=== PATIENT | female | born 1930 | race Caucasian/White ===

== ENCOUNTER 2019-04-14 14:31 | Inpatient (IN) | payer OTHER ==
[2019-04-14] VITALS (15 sets, daily range): BP systolic 137–167; BP diastolic 60–80
[~2019-04-14] VITALS: Ht 152.4 cm; Wt 68.7 kg
--- NOTE | ~2019-04-14 | CON ---
[address] [address] CONSULTATION Name: DERRELL GREEN ABRAM Room: [address] IN M.R.#: [id number] Admission: 04/14/19 Attend Phys: Bobby Martinez MD Discharge: Date of : [birth year] Report #: [id number] THIS REPORT FOR: //name// cc: Delmy Frazier MD, Katrina MD ~ THIS REPORT FOR: //name// CC: Bobby Frazier DATE OF SERVICE: 04/14/2019 CARDIOLOGY CONSULTATION HISTORY OF PRESENT ILLNESS: The patient is a pleasant 89-year-old female who presented to the ER with severe chest discomfort and nausea. This came on in early a.m. and has persisted at the present time. Initial EKG suggested acute inferoposterolateral injury and we were asked to see the patient. On questioning, she notes persistent chest discomfort despite aspirin and nitrates in the ER. She denies pain of this kind in the past and there is no history of antecedent myocardial infarction. She denies a history of hypertension, diabetes, hypercholesterolemia, or family history of premature coronary artery disease. She has never been a smoker. PAST MEDICAL HISTORY: Reveals a question history of hypertension. ALLERGIES: She denies any allergies. PHYSICAL EXAMINATION: GENERAL: Reveals an alert, elderly female, in acute distress. VITAL SIGNS: Blood pressure is 160/70, pulse rate is 66, and respirations are 18 per minute. NECK: Jugular venous pressure is normal. CHEST: Clear. CARDIAC: Reveals normal first and second heart sounds without murmurs or gallops. ABDOMEN: Moderately obese. EXTREMITIES: Well perfused without edema, clubbing or cyanosis with intact femoral, pedal and radial pulses. IMAGING DATA: EKG reveals sinus rhythm with high lateral ST segment depression, inferior right precordial and anterolateral ST segment depression suggesting [place] [address] CONSULTATION Name: DERRELL GREEN ABRAM Room: [address] IN [facility]#: [id number] Admission: 04/14/19 Attend Phys: Bobby Martinez MD Discharge: Date of : [birth year] Report #: [id number] IMPRESSION: 1. Acute myocardial infarction (suggested inferoposterolateral location). 2. Chest pain in the context of #1. 3. Underlying coronary artery disease. 4. Question history of antecedent hypertension. RECOMMENDATIONS: 1. Given the aforementioned clinical scenario, I concur with the administration of aspirin, heparin, and nitrates. 2. I would plan emergent catheterization with consideration of acute coronary intervention contingent on the results of the study. This has been discussed with the patient and family. Critical care time is 30 minutes from 1435 to 1505 on 04/14/2019. By: 1501 1957Hossein Resendiz MD, FACC /nt
[~2019-04-14 14:31] MED LIST: AMOXICILLIN875 MG PO
--- NOTE | 2019-04-14 14:34 | NUR ---
SEE STEMI FLOW SHEET
[2019-04-14] MEDS ORDERED: SYNTHROID75 MCG PO (14:50)
[2019-04-14] MEDS ORDERED: FISH OIL 1,0001 EAC9 PO (14:51)
[2019-04-14] MEDS ORDERED: NEXIUM20 MG PO (14:51)
[2019-04-14 14:56] LABS: HEMATOCRIT 41.2 % (37.0-47.0); HEMOGLOBIN 14.1 gm/dL (12.0-15.0); MCH 32.1 pg (26.0-34.0); MCHC 34.2 g/dL (28.0-37.0); MPV 10.6 fl. (7.2-11.1); NUCLEATED RBCS 0 /100WBC; PLATELET COUNT* 216 thou/uL (150-400); RBC 4.38 mil/uL (4.20-5.00); WBC 8.5 thou/uL (4.0-11.0)
--- NOTE | 2019-04-14 15:00 | NUR ---
2 GOLD IN COLOR NECLACES GIVEN NEELAM PT DAUGHTER
[2019-04-14 15:08] LABS: APTT 27.4 Seconds (25.0-31.3); INR 1.1; PROTIME 10.9 Seconds (9.20-11.50)
--- NOTE | 2019-04-14 15:11 | NUR ---
CHIEF STATION ENGINEER AT BEDSIDE
[2019-04-14 15:19] LABS: ALBUMIN 3.9 g/dL (3.4-5.0); CALCIUM 9.2 mg/dL (8.5-10.1); CK-MB MASS 65.3 ng/mL (<0.5-3.6); CREATININE 0.9 mg/dL (0.6-1.3); MAGNESIUM 1.9 mg/dL (1.8-2.4); POTASSIUM 3.8 mmol/L (3.5-5.1); TOTAL BILIRUBIN 0.5 mg/dL (<0.1-1.0); TOTAL PROTEIN 8.1 g/dL (6.4-8.2)
[2019-04-14 15:21] LABS: ABSOLUTE LYMPHOCYTES 0.4 thou/uL (0.8-5.3); ABSOLUTE MONOCYTES 0.1 thou/uL (0.0-1.2); ATYPICAL LYMPHS 1 %; PLATELET ESTIMATE ADEQUATE
--- NOTE | 2019-04-14 17:44 | EKG ---
[place] [address] ELECTROCARDIOGRAM REPORT Name: DERRELL GREEN Room: [place] [address] ADM IN .R.#: [id number] Admission: 04/14/19 Attend Phys: Bobby Martinez, Discharge: Date of : [birth year] Date of Service: 04/14/19 1434 Report #: [id number] THIS REPORT FOR: //name// [facility] ED Test Date: 2019-04-14 Test Time: 14:34:45 Pat Name: DERRELL GREEN Department: Room: [facility] Gender: F It Portfolio Manager: : 1930 Requested By: Obdulio Nevarez Order Number: [id number] MD: Silverio Neves Measurements Intervals [place] Rate: 65 P: 63 MI: 153 QRS: 20 QRSD: 93 T: -28 QT: 406 QTc: 423 Interpretive Statements Sinus rhythm Atrial premature complexes Repol abnrm suggests ischemia, diffuse leads ST elevation, consider lateral injury Baseline wander in lead(s) II Compared to ECG 08/05/2008 20:44:02 Atrial premature complex(es) now present Early repolarization now present Possible ischemia now present ST (T wave) deviation now present Myocardial infarct finding now present T-wave abnormality no longer present Electronically Signed On 04-14-2019 17:43:13 CRISIS INTERVENTION COUNSELOR by Silverio Neves [email or web address] <ELECTRONICALLY SIGNED> By: Silverio Neves MD, [facility] 04/14/19 1743 1434 1434 Silverio Neves MD, [facility] /EPI
[2019-04-15] VITALS (36 sets, daily range): BP systolic 99–151; BP diastolic 32–66
[2019-04-15 06:09] LABS: HEMATOCRIT 39.4 % (37.0-47.0); HEMOGLOBIN 13.3 gm/dL (12.0-15.0); MCH 31.7 pg (26.0-34.0); MCHC 33.7 g/dL (28.0-37.0); MCV 93.9 fL (80.0-100.0); MPV 10.9 fl. (7.2-11.1); RBC 4.2 mil/uL (4.20-5.00); WBC 13.2 thou/uL (4.0-11.0)
[2019-04-15 06:26] LABS: ALBUMIN 3.1 g/dL (3.4-5.0); ALKALINE PHOSPHATASE 69 U/L (46-116); ANION GAP 13 mmol/L (7-16); BUN 18 mg/dL (7-18); CALCIUM 8.3 mg/dL (8.5-10.1); CHLORIDE 104 mmol/L (98-107); CHOLESTEROL 212 mg/dL (<200); CO2 21 mmol/L (21-32); CREATININE 0.7 mg/dL (0.6-1.3); GLUCOSE 153 mg/dL (70-99); HDL CHOLESTEROL 71 mg/dL (>40); LDL CHOLESTEROL 125 mg/dL (<100); POTASSIUM 3.7 mmol/L (3.5-5.1); SGOT 163 U/L (15-37); SGPT 31 U/L (30-65); SODIUM 138 mmol/L (136-145); TOTAL BILIRUBIN 0.9 mg/dL (<0.1-1.0); TOTAL PROTEIN 6.9 g/dL (6.4-8.2); TRIGLYCERIDE 83 mg/dL (<150); VLDL 17 mg/dL (<40)
[2019-04-15 06:31] LABS: SERUM ASSESSMENT Clear; TROPONIN-I LEVEL 23.95 ng/mL (<0.06)
--- NOTE | 2019-04-15 10:17 | CARD ---
[address] [address] CARDIAC CATH REPORT Name: PETERDERRELLADDIE VALVERDE Room: [address] ADM IN M.R.#: [id number] Admission: 04/14/19 Attend Phys: Bobby Martinez MD Discharge: Date of : [birth year] Report #: [id number] THIS REPORT FOR: //name// cc: Delmy Frazier MD, Katrina MD ~ THIS REPORT FOR: //name// APPROVED REPORT Study performed: 04/14/2019 14:57:33 Patient Details Patient Status: ED Room #: The patient is a 89 year-old female Event Personnel Hossein Resendiz Slide Machine Tender, Ju Bardales RN RN, Waylon Sosa RTR Scrub, Eva Owusu RTR Monitor Procedures Performed Art Access - R femoral artery Coronary Angiography Only BASSAM Revasc AMI Total/Sub Single RCA BASSAM Revasc AMI Total/Sub Single LAD Hemostasis w/ Angioseal Indication Non-STEMI Risk Factors Hypercholesterolemia, Hypertension Admission/Lab Medications/Medications given during procedure Angiomax bolus and infusion Procedure Narrative The patient was brought emergently to the Cardiac Catheterization Laboratory and was prepped and draped in a sterile manner. The right femoral was infiltrated with 2% Lidocaine subcutaneous anesthesia. A [place] 6 FR sheath was inserted into the right femoral artery. Coronary angiography was performed using coronary diagnostic catheters. The right coronary system was accessed and visualized with a Diagnostic 3 DRC 6 Fr catheter. The left coronary system was accessed and visualized with a Guide XBLAD 3.5 catheter. Pre-demployment femoral angiogram was performed . Closure device was deployed with a Fr Angioseal STS 6Fr. The patient tolerated the procedure well and there [place] [address] CARDIAC CATH REPORT Name: DERRELL GREEN Room: [address] IN [facility]#: [id number] Admission: 04/14/19 Attend Phys: Bobby Martinez MD Discharge: Date of : [birth year] Report #: [id number] procedure. There was no hematoma. Intraoperative Conscious Sedation No sedation was given. Case start time was 15:20 and case end time was 17:06 Fluoro Time: 44.8 minutes Dose: DAP 040604 cGycm2 3097 mGy Contrast Type and Amount: Visipaque 300 ml Diagnostic Cath Left Main 50% ostial proximal left main stenosis LAD 90% calcified proximal LAD stenosis with 90% proximal- mid LAD stenosis followed by 60% mid LAD narrowing with 80% mid - distal LAD stenosis Circumflex 40% proximal narrowing Right Coronary Dominant vessel with 90% calcified proximal stenosis and 40% distal narrowing Left Ventriculography Left Ventriculography was not performed. Hemodynamics The aortic pressure is 166/71 mmHg with a mean of 108 mmHg. PCI Technique Lesion Anticoagulation was achieved with Angiomax Drip. Patient was preloaded with Angiomax IV 10 ml. Percutaneous coronary intervention was performed on the proximal right coronary artery. The lesion stenosis prior to intervention was 90% with KARLOS 3 flow. A 6F 3DRC Guide Catheter was used to engage the right ostium. A IG: ProwaterFlex 180CM Interventional Guidewire was used to cross the lesion. BALLOON DILATION A Balloon catheter Trek RX 2.25 X 8 was inserted and inflated up to 16.00atm for 17seconds. Additional Inflation: 20.00atm for 7seconds. STENT DEPLOYMENT A drug-eluting stent Bath RX Stent 2.5X12mm was inserted and inflated up to 12.00atm for 9seconds. Additional Inflation: 14.00atm for 8seconds. Final angiography reveals 0 % stenosis with KARLOS 3 [place] [address] CARDIAC CATH REPORT Name: DERRELL GREEN Room: [address]#: [id number] Admission: 04/14/19 Attend Phys: Bobby Martinez MD Discharge: Date of : [birth year] Report #: [id number] PCI Technique Lesion 2 Percutaneous Coronary Intervention was performed on the mid left anterior descending artery segment. The lesion stenosis prior to intervention was 90% with KARLOS 3 flow. A 6F JL 4.0 [address] Guide Catheter was used to engage the left ostium. A IG: BMW 190cm Interventional Guidewire was used to cross the lesion. Balloon Dilation A Balloon catheter Trek RX 2.25 X 8 was inserted and inflated up to 8.00atm for 6seconds. Additional Inflation: 12.00atm for 11seconds. Additional Inflation: 18.00atm for 11seconds. Stent Deployment A drug-eluting stent Lloyd RX Stent 2.0X12mm was inserted and inflated up to 10.00atm for 7seconds. Additional Inflation: 10.00atm for 7seconds. Final angiography reveals 0 % stenosis with KARLOS 3 flow. Comments The PCI of the LAD was extremely complex by virtue of marked calcification and deformity of the aortic root requiring significant catheter manipulation, finally achieving a suboptimal guide seat with a 6 Polish JL4 short-tip guide. I was able to wire the vessel with difficulty and after dilating distally, I was able to advance the guide over the wire with the balloon inflated to a more asatisfactory left main guide seat. PCI Technique Lesion 3 Percutaneous Coronary Intervention was performed on the proximal left anterior descending artery segment. The lesion stenosis prior to intervention was 90% with KARLOS 3 flow. A 6F JL 4.0 ST Guide Catheter was used to engage the left ostium. A IG: BMW 190cm Interventional Guidewire was used to cross the lesion. Balloon Dilation A Balloon catheter Trek RX 2.25 X 8 was inserted and inflated up to 10atm for 10seconds. Stent Deployment A drug-eluting stent Bath RX Stent 2.5 x 12 was inserted and inflated up to 12atm for 8seconds. Additional Inflation: 15.00atm for 5seconds. Additional Inflation: 16.00atm for 7seconds. Final angiography reveals 10 % stenosis with KARLOS [address] [address] CARDIAC CATH REPORT Name: DERRELL GREEN Room: M.002-P ADM IN M.R.#: [id number] Admission: 04/14/19 Attend Phys: Bobby Martinez MD Discharge: Date of : [birth year] Report #: [id number] PCI Technique Lesion 4 Percutaneous Coronary Intervention was performed on the mid to distal LAD. The lesion stenosis prior to intervention was 80% with KARLOS 3 flow. Balloon Dilation A Balloon catheter Trek RX 2.25 X 8 was inserted and inflated up to 10atm for 10seconds. Final angiography reveals 10 % stenosis with KARLOS 3 flow. Conclusion #1 acute non-ST segment elevation myocardial infarction #2 severe multivessel coronary artery disease characterized by the following: A 50% ostial proximal left vein coronary stenosis B 90% proximal calcified LAD stenosis with 90% proximalmid calcified LAD stenosis followed by 60% narrowing with 80% mid to distal LAD stenosis C 40% proximal circumflex narrowing D dominant right coronary artery with 90% calcified proximal stenosis and 40% distal narrowing #3 modest systemic systolic hypertension #4 successful percutaneous coronary intervention with deployment of a drug-eluting stent at site of 90% proximal right coronary stenosis with 0% residual narrowing and KARLOS-3 flow the distal vessel #5 successful percutaneous coronary intervention to the LAD with deployment of drug-eluting stents in the proximal and proximalmidportion and dilatation of the distal LAD with 10 and 0 and 10% residual narrowings and KARLOS-3 flow to the distal vessel with no residual thrombus. Recommendations Cardiac Risk Reduction Program [facility] [address] [address] CARDIAC CATH REPORT Name: ARNOLD,DERRELL ABRAM Room: 002- ADM IN M.R.#: [id number] Admission: 04/14/19 Attend Phys: Bobyb Martinez MD Discharge: Date of : [birth year] Report #: [id number] Medications Administered Aspirin (any) Ticagrelor Diagnostic Cath Approved by: Hossein Resendiz MD Date/Time: 04/15/2019 10:12:12 <ELECTRONICALLY SIGNED> By: Hossein Resendiz MD, FACC 04/15/19 1016 1016 1016Jovioleta Resendiz MD, FACC /INF
--- NOTE | 2019-04-15 11:10 | 2DMMODE ---
[place] [address] 2 D/M-MODE ECHOCARDIOGRAM Name: DERRELL GREEN Room: [address] ADM IN M.R.#: [id number] Admission: 04/14/19 Attend Phys: Bobby Martinez, Discharge: Date of : [birth year] Date of Service: 04/15/19 1108 Report #: [id number] THIS REPORT FOR: cc: Delmy Frazier MD, Katrina MD Holkins,Hossein Villanueva MD [facility] ~ APPROVED REPORT Study performed: 04/15/2019 10:14:46 EXAM: Comprehensive 2D, Doppler, and color-flow Echocardiogram Patient Location: In-Patient Room #: 002 Status: routine BSA: 1.65 HR: 61 bpm BP: 130/61 mmHg Rhythm: NSR Other Information Study Quality: Good Indications Acute IL 2D Dimensions IVSd: 10.80 (7-11mm) LVOT Diam: 1.90 (18-24mm) LVDd: 48.97 mm PWd: 10.09 (7-11mm) Ascending Ao: 26.64 (22-36mm) LVDs: 25.65 (25-40mm) Aortic Root: 27.94 mm Volumes Left Atrial Volume (Systole) LA ESV Index: 43.30 mL/m2 Aortic Valve AoV Peak Matteo.: 1.23 m/s AO Peak Gr.: 6.02 mmHg LVOT Max P.41 mmHg AO Mean Gr.: 2.82 mmHg LVOT Mean P.57 mmHg LVOT Max V: 0.92 m/s AO V2 VTI: 24.74 cm LVOT Mean V: 0.57 m/s GREGG (VTI): 2.43 cm2 LVOT V1 VTI: 20.72 [place] [address] 2 D/M-MODE ECHOCARDIOGRAM Name: DERRELL GREEN Room: [address] IN .R.#: [id number] Admission: 04/14/19 Attend Phys: Bobby Martinez, Discharge: Date of : [birth year] Date of Service: 04/15/19 1108 Report #: [id number] Mitral Valve E/A Ratio: 2.67 MV Decel. Time: 209.27 ms MV E Max Matteo.: 1.01 m/s MV PHT: 60.69 ms MVA (PHT): 3.63 cm2 TDI E/Lateral E': 14.43 E/Medial E': 16.83 Medial E' Matteo.: 0.06 m/s Lateral E' Matteo.: 0.07 m/s Pulmonary Valve PV Peak Matteo.: 0.77 m/s PV Peak Gr.: 2.37 mmHg Tricuspid Valve RAP Estimate: 5.00 mmHg TR Peak Gr.: 37.97 mmHg RVSP: 43.00 mmHg PA Pressure: 43.00 mmHg Left Ventricle The left ventricle is normal size. Regional wall motion abnormalities are noted with distal septal and anteroapical hypo-akinesis. There is normal left ventricular wall thickness. Left ventricular systolic function is mild to moderately decreased. LVEF is 40-45%. Right Ventricle The right ventricle is normal size. The right ventricular systolic function is normal. Atria Left atrium is moderately dilated. The right atrium size is normal. Aortic Valve Mild aortic valve sclerosis. No aortic regurgitation is present. There is no aortic valvular stenosis. Mitral Valve There is mitral annular calcification. Mild mitral regurgitation. No evidence of mitral valve stenosis. Tricuspid Valve The tricuspid valve is normal in structure. Mild tricuspid regurgitation. [place] [address] 2 D/M-MODE ECHOCARDIOGRAM Name: DERRELL GREEN ABRAM Room: [address] IN [facility]#: [id number] Admission: 04/14/19 Attend Phys: Bobby Martinez, Discharge: Date of : [birth year] Date of Service: 04/15/19 1108 Report #: [id number] Pulmonic Valve The pulmonary valve is normal in structure. Trace pulmonic regurgitation. Great Vessels The aortic root is normal in size. IVC is normal in size and collapses >50% with inspiration. Pericardium There is no pericardial effusion. <Conclusion> The left ventricle is normal size. There is normal left ventricular wall thickness. Left ventricular systolic function is mild to moderately decreased. LVEF is 40-45%. The right ventricle is normal size. Left atrium is moderately dilated. The right atrium size is normal. Mild aortic valve sclerosis. No aortic regurgitation is present. There is no aortic valvular stenosis. There is mitral annular calcification. Mild mitral regurgitation. No evidence of mitral valve stenosis. The tricuspid valve is normal in structure. Mild tricuspid regurgitation. Moderate pulmonary hypertension. IVC is normal in size and collapses >50% with inspiration. There is no pericardial effusion. Regional wall motion abnormalities are noted with distal septal and anteroapical hypo-akinesis. <ELECTRONICALLY SIGNED> By: Hossein Resendiz MD, FACC 04/15/19 1108 1108 1108 Hossein Resendiz MD, FACC /INF
--- NOTE | 2019-04-15 12:30 | NUR ---
PATIENT UP TO COMMODE, NOTICED SOME SLIGHT BLEEDING FROM GROIN CATH SITE. PRESSURE HELD, DRESSING CHANGED USING ASEPTIC TECHNIQUE. VERY SMALL HEMATOMA. BLEEDING RESOLVED, NEW DRESSING APPLIED AND WILL MONTIOR FREQUENTLY. EDUCATED PATIENT ON SPLINTING WHEN COUGHING AND CALLING OUT IF SITE BECOMES WARM AND WET OR MORE PAINFUL. PERIPHERAL PULSE 2+. NO OTHER CONCERNS AT THIS TIME.
--- NOTE | 2019-04-15 18:09 | NUR ---
PATIENT PROGRESSING WELL TOWARDS GOALS. UP TO CHAIR FROM 1300 UNTIL PRESENT. REFUSED ALL MEALS UNTIL DINNER, DID EAT ABOUT 25% OF FOOD. TAKING IN ORAL LIQUIDS ADEQUATLEY. CATHETER DC AND PATIENT EDUCATED TO CALL FOR HELP TO COMMODE ONCE SHE FEELS THE URGE TO URINATE. DAUGHTER AT BEDSIDE AT THIS TIME. GROIN SITE DRESSING CHANGED THIS SHIFT X1. CLEAN DRY AND INTACT AT THIS TIME. SLIGHT HEADACHE, TYLENOL GIVEN, NO NAUSEA OR SHORTNESS OF AIR. BED IN LOWEST POSITION, CALL LIGHT IN REACH, CARDIAC MONTIOR IN PLACE. FALL PRECAUTIONS IN PLACE.
[2019-04-16] VITALS (16 sets, daily range): BP systolic 83–115; BP diastolic 24–72
--- NOTE | 2019-04-16 03:00 | NUR ---
PT GIVEN TYLNOL 650MG PO AT HS FOR C/O LEFT SHOULDER/ARM PAIN, RESTING QUIELTY WITH EYES CLOSED, EASILY AROUSABLE TO VERBAL STIMULI AFTER TYLENOL ADMINISTRATION, AWAOKE C/O NECK, BILAT UPPER EXTREMITY, AND STERNAL PAIN 10/10. STATES HAS NEVER HAD PAIN LIKE THIS, VERBALIZED FELT TYLENOL GIVEN EARLIER HAD NO BEEN EFFECTIVE FOR PAIN MANAGEMENT, EKG DONE, EMOTIONAL SUPPORT PROVIED, PT SPEAKING LOW RASPY VOICE, PT NOTED TO BE ABLE TO SPEAK NORMAL PITCH REGULAR SPEAKING VOICE WITH DISTRACTION, NITROGLYCERIN 0.4MG SL GIVEN X1 WITHOUT CHANGE IN PAIN, B/P DECREASED AFTER X1 NITROGLYCERIN GIVEN, PT STATED HAD RESTED EARILER IN DAY IN RECLINER BETTER THAN BEING IN BED, FAMILY SUPPORT WORKER GUILLERMO PEDRAZA IN ROOM TO ASSIST WITH EVALUATION PAIN, ASSISTED PT TO RECLINER WITH STEADY GAIT, EMOTIONAL SUPPORT PROVIDED, WARM BLANKET TO NECK AREA, TYLENOL 65OMG PO GIVEN, PT NOTED TO BE RESTING QUIETLY WITH EYES CLOSED, AT THIS TIME, NSR TRACING DIAMOND BLENDER, CALL LIGHT IN REACH, WILL CONTINUE TO MONITOR.
[2019-04-16 03:52] LABS: ABSOLUTE LYMPHOCYTES 0.4 thou/uL (0.8-5.3); BASOPHILS 0.1 %; HEMATOCRIT 32.5 % (37.0-47.0); MCH 32.1 pg (26.0-34.0); MCHC 34.3 g/dL (28.0-37.0); MCV 93.6 fL (80.0-100.0); MONOCYTES 7.7 %; MPV 11.4 fl. (7.2-11.1); NUCLEATED RBCS 0 /100WBC; PLATELET COUNT* 174 thou/uL (150-400); POLYS 89.2 %; RBC 3.47 mil/uL (4.20-5.00); RDW-CV 13.9 % (10.5-14.5); WBC 13.4 thou/uL (4.0-11.0)
[2019-04-16 03:57] LABS: CALCIUM 8.2 mg/dL (8.5-10.1); CREATININE 0.9 mg/dL (0.6-1.3); POTASSIUM 3.5 mmol/L (3.5-5.1)
[2019-04-16 03:59] LABS: HEMOGLOBIN 11.1 gm/dL (12.0-15.0)
--- NOTE | 2019-04-16 07:00 | NUR ---
PT RESTING QUIELTY WITH EYES CLOSED OFF AND ON DURING NOC, C/O NECK PAIN THIS AM, DIVERSIONAL ACTIVIY INCLUDING TV AND RELAXATION TECHNIQUES HELPFUL, EMOTIONAL SUPPORT PROVIDED, WARM BLANKET ROLLED UP BEHIND NECK, REMAINS NSR TRACING FINISHER DENTURE ALL NOC, UP IN ROOM WITH X1 ASSIST SLOW STEADY GAIT, 150CC CAMILO URINE OUT VIA BSC, BLADDER SCANNED PERFORMED RESULTING 51CC URINE RESIDUAL IN BLADDER, AFEBRILE, PO FLUIDS ENCOURAGED. DRESSING RIGHT GROIN S/P CARDIAC CATHETERIZATION REMAINS C/D/I. CALL LIGHT IN REACH, SAFETY MAINTAINED.
--- NOTE | 2019-04-16 14:55 | NUR ---
PATIENT TRANSFERD TO ROOM 208 BY WHEELCHAIR WITH NURSING STAFF. REPORT GIVEN TO KEILA MONTERO. ALL QUESTIONS ANSWERED. ALL BELONGINGS TAKEN WTIH PATIENT, DAUGHTER PRESENT AT TRANSFER. CHART SENT WITH PATIENT ALSO.
[2019-04-17] VITALS (11 sets, daily range): BP systolic 88–122; BP diastolic 40–93
[2019-04-17 05:28] LABS: ABSOLUTE LYMPHOCYTES 0.5 thou/uL (0.8-5.3); ABSOLUTE MONOCYTES 0.7 thou/uL (0.0-1.2); ABSOLUTE NEUTROPHILS 10.4 thou/uL (1.6-8.1); BASOPHILS 0.2 %; EOSINOPHILS 0.2 %; HEMATOCRIT 31.2 % (37.0-47.0); HEMOGLOBIN 10.7 gm/dL (12.0-15.0); LYMPHOCYTES 4.1 %; MCH 32.1 pg (26.0-34.0); MCHC 34.2 g/dL (28.0-37.0); MCV 93.9 fL (80.0-100.0); MONOCYTES 6.2 %; MPV 12.1 fl. (7.2-11.1); NUCLEATED RBCS 0 /100WBC; PLATELET COUNT* 160 thou/uL (150-400); POLYS 89.3 %; RBC 3.32 mil/uL (4.20-5.00); RDW-CV 13.6 % (10.5-14.5); WBC 11.6 thou/uL (4.0-11.0)
[2019-04-17 05:52] LABS: CALCIUM 8.1 mg/dL (8.5-10.1); CREATININE 0.9 mg/dL (0.6-1.3); POTASSIUM 3.4 mmol/L (3.5-5.1)
--- NOTE | 2019-04-17 08:26 | NUR ---
ASSUMED PATIENT CARE AT 1900. ASSESSMENT COMPLETED CHARTED. PATIENT IS NSR ON THE MONITOR. DURING SHIFT THIS NURSE WAS NOTIFIED BY THE SOCIAL WORK PROGRAM COORDINATOR THAT THE PATIENT HAD A LOW BP WITH A MAP OF 57. THIS NURSE RECHECKED THE PATIENT'S BP AND THE MAP WAS 63. THE PATIENT WAS ASYMPTOMATIC. HOURLY ROUNDING IN PLACE FOR PATIENT SAFETY. CLWR.
[2019-04-17] MEDS ORDERED: PLAVIX 75 MG TA75 MG PO (08:41)
[2019-04-17] MEDS ORDERED: LIPITOR40 MG PO ×2 (08:41→11:24)
[2019-04-17] MEDS ORDERED: ASA81BEC PO (08:41)
--- NOTE | 2019-04-17 08:43 | EKG ---
[place] [address] ELECTROCARDIOGRAM REPORT Name: DERRELL GREEN Room: [address] ADM IN .R.#: [id number] Admission: 04/14/19 Attend Phys: Bobby Martinez, Discharge: Date of : [birth year] Date of Service: 04/15/19 0411 Report #: [id number] THIS REPORT FOR: //name// [facility] Test Date: 2019-04-15 Test Time: 04:11:11 Pat Name: DERRELL GREEN Department: Room: [facility] Gender: F Auto Self Service Station Attendant: Amilcar Zepeda : 1930 Requested By: Hossein Resendiz Order Number: [id number] Nessa MD: Tim Yates Measurements Intervals [place] Rate: 65 P: 56 MN: 147 QRS: 19 QRSD: 92 T: 47 QT: 444 QTc: 462 Interpretive Statements Sinus rhythm previous lateral infarction Borderline repolarization abnormality Compared to ECG 04/14/2019 14:34:45 Atrial premature complex(es) no longer present Electronically Signed On 04-17-2019 8:42:21 BSA OFFICER by Tim Yates [email or web address] <ELECTRONICALLY SIGNED> By: Tim Yates MD, [facility] 04/17/19 0842 0411 0411 Tim Yates MD, [facility] /EPI
--- NOTE | 2019-04-17 08:44 | EKG ---
[place] [address] ELECTROCARDIOGRAM REPORT Name: DERRELL GREEN Room: [address] ADM IN .R.#: [id number] Admission: 04/14/19 Attend Phys: Bobby Martinez, Discharge: Date of : [birth year] Date of Service: 04/16/19 0134 Report #: [id number] THIS REPORT FOR: //name// [facility] Test Date: 2019-04-16 Test Time: 01:34:41 Pat Name: DERRELL GREEN Department: Room: [facility] Gender: F Photo Tech: ALEX PEDRAZA : 1930 Requested By: Bobby Martinez Order Number: [id number] Nessa MD: Tim Yates Measurements Intervals [place] Rate: 72 P: 42 [place]: 144 QRS: 8 QRSD: 110 T: 172 QT: 482 QTc: 528 Interpretive Statements Sinus rhythm Abnrm T, consider ischemia, anterolateral lds previous lateral infarction Prolonged QT interval Electronically Signed On 04-17-2019 8:43:09 STEEL FITTER by Tim Yates [email or web address] <ELECTRONICALLY SIGNED> By: Tim Yates MD, [facility] 04/17/19 0843 0134 0134 Tim Yates MD, [facility] /EPI
[2019-04-17] MEDS ORDERED: NITROSTAT0.3 MG TRANSLING (08:46)
[2019-04-17] MEDS ORDERED: NITROSTAT0.4 M1 SUBLING (08:47)
--- NOTE | 2019-04-17 11:18 | NUR ---
WALKED PATIENT UP AND DOWN THE ROBB, SLIGHTLY DIZZY AND WOBBLY BUT TOLERATED WELL. PATIENT REPORTS DIZZINESS TO BE THE NORMAL. WILL WALK A FEW MORE TIMES BEFORE LETTING PATIENT D/C. CARDIAC REHAB TO SEE PATIENT WELL.
[2019-04-17] MEDS ORDERED: BRILINTA90 MG PO (11:24)
[2019-04-17] MEDS ORDERED: TORSEMIDE10 MG PO (11:40)
[2019-04-17] MEDS ORDERED: KLOR-CON 1010 MEQ PO (16:17)
[2019-04-17 23:09] LABS: GLYCOHEMOGLOBIN (HGB A1C) 5.6 % (4.8-5.6)
== END 2019-04-17 16:50 | disposition home health service (06) | DRG 246 ==
LOC: M.ERS 14:31 → M.2W 15:17 → M.TBA-CV 15:17 → M.ICU 18:02 → M.2W 04-16 14:53
PROVIDERS: Family Medicine; Internal Medicine; Internal Medicine Cardiovascular Disease; ADMIT Internal Medicine
PROC: 4A023N7 Measurement of Cardiac Sampling and Pressure, Left Heart, Percutaneous Approach (ICD-10-PCS; principal; 2019-04-14)
PROC: 027136Z Dilation of Coronary Artery, Two Arteries with Three Drug-eluting Intraluminal Devices, Percutaneous Approach (ICD-10-PCS; principal; 2019-04-14)
PROC: B211YZZ Fluoroscopy of Multiple Coronary Arteries using Other Contrast (ICD-10-PCS; principal; 2019-04-14)
PROC: 02703ZZ Dilation of Coronary Artery, One Artery, Percutaneous Approach (ICD-10-PCS; principal; 2019-04-14)
DX: I21.29 ST elevation (STEMI) myocardial infarction involving other sites (principal); I50.31 Acute diastolic (congestive) heart failure; E78.00 Pure hypercholesterolemia, unspecified; E78.5 Hyperlipidemia, unspecified; I25.5 Ischemic cardiomyopathy; I11.0 Hypertensive heart disease with heart failure; I25.10 Atherosclerotic heart disease of native coronary artery without angina pectoris; I27.20 Pulmonary hypertension, unspecified; Z98.84 Bariatric surgery status; Z87.81 Personal history of (healed) traumatic fracture; Z79.01 Long term (current) use of anticoagulants; Z79.899 Other long term (current) drug therapy; Z79.82 Long term (current) use of aspirin

== ENCOUNTER → 2019-04-19 | Outpatient (CLI) | payer OTHER ==
[~2019-04-19] MED LIST changes: +ASA81BEC PO; +BRILINTA90 MG PO; +FISH OIL 1,0001 EAC9 PO; +KLOR-CON 1010 MEQ PO; +LIPITOR40 MG PO; +NEXIUM20 MG PO; +NITROSTAT0.3 MG TRANSLING; +NITROSTAT0.4 M1 SUBLING; +PLAVIX 75 MG TA75 MG PO; +SYNTHROID75 MCG PO; +TORSEMIDE10 MG PO
[2019-04-19 12:51] LABS: CALCIUM 8.4 mg/dL (8.5-10.1); CREATININE 1.1 mg/dL (0.6-1.3); POTASSIUM 3.6 mmol/L (3.5-5.1)
== END ==
LOC: M.LAB 12:12
PROVIDERS: Registered Nurse
DX: I50.9 Heart failure, unspecified (principal)

== ENCOUNTER 2019-04-26 23:25 | Inpatient (IN) | payer OTHER ==
[~2019-04-26] VITALS: Ht 152.4 cm; Wt 71.2 kg
[2019-04-26 23:34] VITALS: BP 129/81
[2019-04-27 00:13] LABS: HEMATOCRIT 30.3 % (37.0-47.0); HEMOGLOBIN 10.1 gm/dL (12.0-15.0); MCH 30.9 pg (26.0-34.0); MCHC 33.2 g/dL (28.0-37.0); MCV 93.1 fL (80.0-100.0); MPV 9.2 fl. (7.2-11.1); NUCLEATED RBCS 0 /100WBC; PLATELET COUNT* 469 thou/uL (150-400); RBC 3.26 mil/uL (4.20-5.00); RDW-CV 13.8 % (10.5-14.5); WBC 14.3 thou/uL (4.0-11.0)
[2019-04-27 00:34] LABS: URINE BILIRUBIN NEGATIVE (Negative); URINE BLOOD NEGATIVE (Negative); URINE CLARITY CLEAR; URINE COLOR YELLOW; URINE GLUCOSE-RANDOM NEGATIVE (Negative); URINE KETONES NEGATIVE (Negative); URINE NITRITE-REFLEX NEGATIVE (Negative); URINE PROTEIN NEGATIVE (Negative)
[2019-04-27 00:36] LABS: URINE LEUKOCYTES-REFLEX 2+ (Negative)
[2019-04-27 00:38] LABS: SQUAMOUS 0-3 Few /LPF (0-3); URINE WBC-REFLEX >25 Many /HPF (0-5)
[2019-04-27 00:39] LABS: BACTERIA-REFLEX >30 Many /HPF (None Seen); CASTS None Seen /LPF (None Seen); CRYSTALS None Seen /LPF (None Seen); MUCUS 4-6 Moderate strn/LPF (None Seen); URINE RBC 3-10 Few /HPF (0-2)
[2019-04-27 00:47] LABS: CALCIUM 8.3 mg/dL (8.5-10.1); CREATININE 0.8 mg/dL (0.6-1.3); POTASSIUM 3.3 mmol/L (3.5-5.1)
[2019-04-27 00:51] LABS: ALBUMIN 2.7 g/dL (3.4-5.0); TOTAL BILIRUBIN 0.9 mg/dL (<0.1-1.0)
[2019-04-27 00:58] LABS: ABSOLUTE LYMPHOCYTES 1.1 thou/uL (0.8-5.3); ABSOLUTE MONOCYTES 0.4 thou/uL (0.0-1.2); ABSOLUTE NEUTROPHILS 12.7 thou/uL (1.6-8.1); PLATELET ESTIMATE INCREASED
[2019-04-27 00:59] LABS: ANISOCYTOSIS Occasional; LARGE PLATELETS OCCASIONAL; TOXIC GRANULATION 2+
[2019-04-27 04:04] VITALS: BP 109/61
[2019-04-27 04:21] VITALS: BP 115/51
--- NOTE | 2019-04-27 06:08 | NUR ---
RECEIVED PT FROM ED PER CART AT APPROX 0404. PT IS AWAKE AND ORIENTED X4. CUTTING TABLE OPERATOR IN PLACE-TRACING SR. ADMISSION ASSESSMENT DONE AND CHARTED. ADVISED ON THE USE OF CALL LIGHT AND ON ROOM SET UP. PT C/O RUQ ABDOMINAL PAIN AND SOME HEADACHE, RELEIVED BY TYLENOL GIVEN PER MAR. CALL LIGHT WITHIN REACH. WCTM PT. HIGH FALL PRECAUTIONS IN PLACE.
[2019-04-27 08:00] VITALS: BP 122/58
[2019-04-27 10:30] LABS: ABSOLUTE BASOPHILS 0.1 thou/uL (0.0-0.2); ABSOLUTE EOSINOPHILS 0.1 thou/uL (0.0-0.7); ABSOLUTE LYMPHOCYTES 0.4 thou/uL (0.8-5.3); ABSOLUTE MONOCYTES 0.5 thou/uL (0.0-1.2); ABSOLUTE NEUTROPHILS 10.4 thou/uL (1.6-8.1); BASOPHILS 0.5 %; EOSINOPHILS 0.8 %; HEMATOCRIT 28.3 % (37.0-47.0); HEMOGLOBIN 9.6 gm/dL (12.0-15.0); LYMPHOCYTES 3.8 %; MCH 31.5 pg (26.0-34.0); MCHC 33.9 g/dL (28.0-37.0); MONOCYTES 4.2 %; NUCLEATED RBCS 0 /100WBC; PLATELET COUNT* 464 thou/uL (150-400); POLYS 90.7 %; RBC 3.04 mil/uL (4.20-5.00); WBC 11.4 thou/uL (4.0-11.0)
[2019-04-27 10:47] LABS: ALBUMIN 2.4 g/dL (3.4-5.0); CALCIUM 8.1 mg/dL (8.5-10.1); CREATININE 0.9 mg/dL (0.6-1.3); MAGNESIUM 2.1 mg/dL (1.8-2.4); POTASSIUM 3.5 mmol/L (3.5-5.1); TOTAL BILIRUBIN 0.6 mg/dL (<0.1-1.0); TOTAL PROTEIN 6.7 g/dL (6.4-8.2)
[2019-04-27 11:41] VITALS: BP 124/68
--- NOTE | 2019-04-27 11:58 | EKG ---
[place] [address] ELECTROCARDIOGRAM REPORT Name: DERRELL GREEN Room: [address] ADM IN M.R.#: [id number] Admission: 04/27/19 Attend Phys: Katya Roque, Discharge: Date of : [birth year] Date of Service: 04/26/19 2342 Report #: [id number] THIS REPORT FOR: //name// [facility] ED Test Date: 2019-04-26 Test Time: 23:42:38 Pat Name: DERRELL GREEN Department: Room: [facility] Gender: F Fisheries Officer: : 1930 Requested By: Guillermo Kraus Order Number: [id number] MD: Tim Yates Measurements Intervals [place] Rate: 81 P: 47 [place]: 136 QRS: 4 QRSD: 91 T: -66 QT: 438 QTc: 509 Interpretive Statements Sinus rhythm Abnrm T, consider ischemia, anterolateral lds Borderline ST elevation, lateral leads, consider old lateral infarction Prolonged QT interval Compared to ECG 04/16/2019 01:34:41 Possible ischemia still present Electronically Signed On 04-27-2019 11:57:07 HAND MOLD MAKER by Tim Yates [email or web address] <ELECTRONICALLY SIGNED> By: Tim Yates MD, FAC 04/27/19 1157 2342 2342 Tim Yates MD, FAC /EPI
--- NOTE | 2019-04-27 12:22 | NUR ---
MET WITH PT TO DISCUSS HOME SITUATION/DC PLANNING. PT STATES HER SON LIVES WITH HER BUT WORKS. HE IS HER DPOA. PT HAD RECENT AR AND FALL AT HOME. ASKED ABOUT FALL, STATES IT WAS 'BECAUSE I DIDN'T TURN ON THE LIGHT.' SHE STATES SHE PLANS TO MANAGE THAT BETTER AT HOME IN FUTURE. PT USES NO EQUIPMENT AND HASN'T HAD HH OR BEEN TO SNF. DENIES ANY DC NEEDS AT THIS TIME. WILL FOLLOW
[2019-04-27 16:38] VITALS: BP 139/57
--- NOTE | 2019-04-27 17:35 | 2DMMODE ---
[place] [address] 2 D/M-MODE ECHOCARDIOGRAM Name: DERRELL GREEN ABRAM Room: [address] [facility]#: [id number] Admission: 04/27/19 Attend Phys: Katya Roque, Discharge: Date of : [birth year] Date of Service: 04/27/19 1734 Report #: [id number] THIS REPORT FOR: cc: TRISTIN MULLER MD, CHADWICK MD Liston, Michael J. MD [facility] ~ APPROVED REPORT Study performed: 04/27/2019 10:23:10 EXAM: Limited 2D Echocardiogram Patient Location: In-Patient Room #: 230 Status: routine BSA: 1.65 HR: 74 bpm BP: 115/51 mmHg Rhythm: NSR Other Information Study Quality: Good Indications Elevated Troponin Volumes Left Atrial Volume (Systole) LA ESV Index: 73.10 mL/m2 Left Ventricle The left ventricle is normal size. There is akinesis of the apex as well as the mid to apical anterior and anteroseptal wall. There is normal left ventricular wall thickness. Left ventricular systolic function is mild to moderately decreased. Left ventricular thrombus is present. LVEF is 35-40%. Right Ventricle The right ventricle is normal size. The right ventricular systolic function is normal. Atria Left atrium is severely dilated. The right atrium size is normal[place] [address] 2 D/M-MODE ECHOCARDIOGRAM Name: DERRELL GREEN [facility] Room: [address] IN M.R.#: [id number] Admission: 04/27/19 Attend Phys: Katya Roque, Discharge: Date of : [birth year] Date of Service: 04/27/19 1734 Report #: [id number] Mild aortic valve sclerosis. Mitral Valve There is mitral annular calcification. Tricuspid Valve The tricuspid valve is normal in structure. Pulmonic Valve The pulmonary valve is normal in structure. Great Vessels The aortic root is normal in size. IVC is normal in size and collapses >50% with inspiration. Pericardium Trace pericardial effusion. <Conclusion> The left ventricle is normal size. There is normal left ventricular wall thickness. Left ventricular systolic function is mild to moderately decreased. LVEF is 35-40%. There is akinesis of the apex as well as the mid to apical anterior and anteroseptal wall. Left ventricular thrombus is present. Left atrium is severely dilated. Mild aortic valve sclerosis. There is mitral annular calcification. Trace pericardial effusion. <ELECTRONICALLY SIGNED> By: Silverio Neves MD, FACC 04/27/19 1734 1734 1734 Silverio Neves MD, FACC /INF
--- NOTE | 2019-04-27 18:00 | NUR ---
ASSUMED PT CARE AT 0700, PT A&O X4, VSS, RA, LS CTA, NON PRODUCTIVE COUGH, TOUCH UP WORKER TRACING SINUS RHYTHM, UP WITH STAND BY ASSIST TO TOILET. PT CONT ON IV ABTS FOR PNEUMONIA AND UTI, TOLERATING WELL. HOURLY ROUNDING COMPLETED.
[2019-04-27 20:00] VITALS: BP 118/44
[2019-04-28] VITALS (7 sets, daily range): BP systolic 104–150; BP diastolic 46–71
--- NOTE | 2019-04-28 03:04 | NUR ---
PT ALERT ORIENTED. UP WITH STAND BY ASSIST. TELEMTRY SHOWS SR. VOIDS PER BR. ON RA. TYLENOL GIVEN FOR HEAD ACHE PAIN. WCTM
--- NOTE | 2019-04-28 03:06 | NUR ---
ALERT OREINTED. UP WITH STD BY ASSIST. ON RA. TELEMETRY SHOWS SR. TYLENOL GIVEN FOR HEAD ACHE PAIN. WCTM
[2019-04-28 04:41] LABS: HEMATOCRIT 27.6 % (37.0-47.0); HEMOGLOBIN 9.3 gm/dL (12.0-15.0); MCH 31.2 pg (26.0-34.0); MCHC 33.5 g/dL (28.0-37.0); MPV 9.3 fl. (7.2-11.1); RBC 2.97 mil/uL (4.20-5.00); RDW-CV 13.9 % (10.5-14.5)
[2019-04-28 05:05] LABS: ALBUMIN 2.2 g/dL (3.4-5.0); CALCIUM 7.9 mg/dL (8.5-10.1); CREATININE 1.1 mg/dL (0.6-1.3); POTASSIUM 3.3 mmol/L (3.5-5.1); TOTAL BILIRUBIN 0.7 mg/dL (<0.1-1.0); TOTAL PROTEIN 6.4 g/dL (6.4-8.2)
[2019-04-28 09:26] LABS: % SATURATION 6 % (20-39); IRON 12 ug/dL (50-175)
--- NOTE | 2019-04-28 14:25 | NUR ---
CONTINUE TO FOLLOW, MET WITH PT AND DTR/NEELAM. PT UP IN CHAIR, HAD THORACENTESIS TODAY. STATES FEELING IMPROVED. ENCOURAGED HER TO WORK WITH THERAPY. DTR CONFIRMED PT IS NORMALLY VERY INDEPEDENT. ANTICIPATE PT WILL BE ABLE TO RETURN HOME AT [place], NO DATE KNOWN YET. WILL FOLLOW
[2019-04-29 04:00] VITALS: BP 113/81
[2019-04-29 08:00] VITALS: BP 100/53
[2019-04-29 13:42] LABS: CLARITY CLEAR; SOURCE PLEURAL FLUID; TOTAL VOLUME 660 ml
[2019-04-29 13:48] LABS: BF RBC 948 /mm3; TOTAL CELL COUNT 933 /mm3
[2019-04-29 13:56] LABS: BF LYMPHOCYTES 36 %; BF MONOCYTES 24 %; BF POLYS 40 %
[2019-04-29 13:58] LABS: BF TISSUE 8 /100 WBC
[2019-04-29 15:48] VITALS: BP 120/67
[2019-04-29 20:00] VITALS: BP 118/54
--- NOTE | 2019-04-29 21:22 | NUR ---
I ASSUMED CARE OF THE PATIENT AT 1500. SHE IS ALERT AND ORIENTED X4 AND IS UP WITH ASSIST OF ONE AND A WALKER. BED IS IN THE LOW LOCKED POSITION AND CALL LIGHT IS IN REACH. HOURLY ROUNDING IS COMPLETED AND PATIENT NEEDS ARE MET. PAIN IS DENIED. FAMILY IS AT THE BEDSIDE. NEW ORDERS WERE RECEIVED FOR SLEEPING TONIGHT. SHE IS MED/SURG STATUS. WILL CONTINUE TO MONITOR.
[2019-04-30] VITALS: BP 120/46
[2019-04-30 03:16] VITALS: BP 95/49
[2019-04-30 05:33] LABS: HEMATOCRIT 29.2 % (37.0-47.0); MCH 31.5 pg (26.0-34.0); MCHC 34.2 g/dL (28.0-37.0); MCV 92.2 fL (80.0-100.0); MPV 8.9 fl. (7.2-11.1); RBC 3.17 mil/uL (4.20-5.00); RDW-CV 13.8 % (10.5-14.5); WBC 9.5 thou/uL (4.0-11.0)
[2019-04-30 05:45] LABS: ALBUMIN 2.3 g/dL (3.4-5.0); CALCIUM 8.2 mg/dL (8.5-10.1); CREATININE 0.9 mg/dL (0.6-1.3); MAGNESIUM 1.9 mg/dL (1.8-2.4); POTASSIUM 3.4 mmol/L (3.5-5.1)
--- NOTE | 2019-04-30 07:38 | NUR ---
ASSUMED PT CARE AT 1915 THIS SHIFT. NURSING ASSESSMENT COMPLETED AT START OF SHIFT. HOURLY ROUNDING COMPLETED. HIGH FALL PRECAUTIONS IN PLACE. CALL LIGHT WITHIN REACH. PT VOICED UNABLE TO SLEEP THROUGHOUT SHIFT. PT EDUCATED DUE TO IV LASIX DOSE, URINARY FEQUENCY EXPECTED.
[2019-04-30 08:24] VITALS: BP 102/55
[2019-04-30 12:09] LABS: BODY FLUID LDH 145 IU/L (()); BODY FLUID PROTEIN 2.9 g/dL (())
[2019-04-30 16:48] VITALS: BP 103/47
[2019-04-30 20:00] VITALS: BP 108/47
[2019-05-01 00:34] VITALS: BP 91/40
--- NOTE | 2019-05-01 06:31 | NUR ---
PT ALERT ORIENETED. UP TO BR WITH ASSIST OF ONE. MED SURG STATUS. ON RA. TYLENOL GIVEN FOR BACK PAIN THIS AM. WILL CONTINUE TO MONITOR
[2019-05-01 08:00] VITALS: BP 104/43
[2019-05-01 11:35] VITALS: BP 97/54
--- NOTE | 2019-05-01 12:34 | NUR ---
Nutrition: Pt admitted with anemia. Assessed for wounds on toes. Heart healthy diet. Albumin 2.3, prealb 13.4. H/o HTN, CAD. RD ordered [place] to aid in wound healing. Mild risk.
--- NOTE | 2019-05-01 13:59 | NUR ---
CONTINUE TO FOLLOW, MET WITH PT AND HER NIECE. NIECE WAS ASKING ABOUT HH AND ENCOURAGING PT TO CONSIDER. DISCUSSED OPTIONS AND PT WANTED CM TO CALL HER DTR/NEELAM. CALL TO NEELAM, DISCUSSED OPTIONS, CHOSE [facility]. ALSO HAD SUGGESETED TO PT TO CONSIDER [facility], WILL ASK AGAIN. CALLED AND FAXED INITIAL REFERRAL TO [facility]. SHE WILL NEED ORDERS AND FAX AT [place]. [facility] [phone] FAX [phone]
[2019-05-01 16:05] LABS: SOURCE PLEURAL
[2019-05-01 16:49] VITALS: BP 114/55
--- NOTE | 2019-05-01 17:45 | NUR ---
ASSUMED PT CARE AT 0700, PT A&O X4, VSS, RA, LS CTA, REMAINS MED SURG STATUS. PT TRANSFERRED TO [facility] D/T M/S STATUS. REPORT GIVEN TO KEILA STREETER. ALL BELONGINGS SENT WITH PT, DAUGHTER, NEELAM NOTIFIED, HOURLY ROUNDING COMPLETED.
[2019-05-01 18:36] VITALS: BP 99/47
--- NOTE | 2019-05-01 18:59 | NUR ---
PT. RECEIVED AT 1730 PER BED WITH BELONGINGS TO ROOM 108. HX OF PULMONARY EDEMA PNEUMONIA AND S/P X OF [place] WITH 3 STENTS ON 04/14/19. ALERT ORIENTED PLEASANT COOPERATIVE. SL L ARM FOR IV ANTIBIOTICS, DENIES PAIN OR CONCERNS. ORIENTED TO ROOM FAMILY AT BEDSIDE. HX OF A THORACENTISIS RECENTLY L SIDE 04/28/19. HAS HAD FORMED AND SOME LOOSE BMS ON 2ND FLOOR.
[2019-05-01 20:45] VITALS: BP 118/53
--- NOTE | 2019-05-02 06:12 | NUR ---
PATIENT HAS RESTED WELL THROUGHOUT MOST OF THE NIGHT. VSS ON RA. MEDICATIONS GIVEN ORDERED AND CHARTED. PATIENT IS UP WITH SBA TO THE BATHROOM BUT UNSTEADY AT TIMES. NEW IV INSERTED IN LEFT WRIST- IV ABT'S GIVEN WITHOUT ANY ADVERSE SIDE EFFECTS NOTED. PATIENT INSTRUCTED TO USE CALL LIGHT WHEN NEEDING ASSISTANCE. HOURLY ROUNDS MADE. WILL CONTINUE WITH PLAN OF CARE AND NURSING TO MONITOR.
[2019-05-02 10:26] VITALS: BP 103/84
--- NOTE | 2019-05-02 12:03 | NUR ---
RE: HEART FAILURE MEDICATION EDUCATION I PROVIDED PATIENT A HEART FAILURE MEDICATION INFORMATION HANDOUT. WE DISCUSSED LOSARTAN AND SPIRONOLACTONE. PATIENT HAD NO QUESTIONS AT THIS TIME. PHARMACY AVAILABLE FOR ANY FUTURE QUESTIONS. THANK YOU.
[2019-05-02 15:55] LABS: ABSOLUTE BASOPHILS 0.1 thou/uL (0.0-0.2); ABSOLUTE EOSINOPHILS 0.1 thou/uL (0.0-0.7); ABSOLUTE LYMPHOCYTES 0.6 thou/uL (0.8-5.3); ABSOLUTE MONOCYTES 0.9 thou/uL (0.0-1.2); ABSOLUTE NEUTROPHILS 8.6 thou/uL (1.6-8.1); BASOPHILS 0.9 %; EOSINOPHILS 1.1 %; HEMATOCRIT 30.3 % (37.0-47.0); HEMOGLOBIN 10.1 gm/dL (12.0-15.0); MCH 30.8 pg (26.0-34.0); MCHC 33.4 g/dL (28.0-37.0); MCV 92.3 fL (80.0-100.0); MONOCYTES 8.4 %; MPV 8.5 fl. (7.2-11.1); NUCLEATED RBCS 0 /100WBC; PLATELET COUNT* 537 thou/uL (150-400); POLYS 83.6 %; RBC 3.28 mil/uL (4.20-5.00); RDW-CV 14.2 % (10.5-14.5); WBC 10.2 thou/uL (4.0-11.0)
[2019-05-02 16:00] LABS: CALCIUM 7.7 mg/dL (8.5-10.1); CREATININE 1.4 mg/dL (0.6-1.3); POTASSIUM 3.2 mmol/L (3.5-5.1)
--- NOTE | 2019-05-02 16:07 | PATH ---
[address] [address] PATHOLOGY RPT PROCEDURE Name: DERRELL GREEN ABRAM Room: [address] IN [facility]#: [id number] Admission: 04/27/19 Date of : [birth year] Discharge: Report #: [id number] Path Case #: [id number] Note [facility] Accession Number: [id number] TESTS RESULT FLAG UNITS REF RANGE LAB Clinician Provided Cytology Information No. of containers..01 Other (Miscellaneous) Source: PLERUAL FLUID DIAGNOSIS: 02 PLEURAL FLUID, SIDE NOT SPECIFIED. NEGATIVE FOR MALIGNANT CELLS. MESOTHELIAL CELLS AND FEW INFLAMMATORY CELLS. THIS INTERPRETATION INCLUDES EVALUATION OF A CELL BLOCK. Signed out by: 02 Bryan Urbina MD, Pathologist NPI- [id number] Performed by: 01 Malissa Hightower, Competitive Intelligence Manager ([facility]) Gross description: 01 25ML, CLEAR YELLOW, 1 TP 1CB /LCS 05/01/2019 1607 Local FLAG LEGEND: L-Low Normal,H-High Normal,LL-Alert Low,HH-Alert High <-Panic Low,>-Panic High,A-Abnormal,AA-Critical Abnormal Performed at: [address] [place] [address] Juan Otero MD, [address] [place] [address].[place] [address] Bryan Urbina MD, Specimen Comment: A courtesy copy of this report has been sent to [phone] Specimen Comment: [id number], , Specimen Comment: Report sent to ,DR PANTOJA,DR MULLER / DR TURNER Specimen Comment: A duplicate report has been generated due to demographic updates. Performed at: [address], [place], [place] [address] MD Juan Otero MD Phone: [phone]
[2019-05-02 16:20] VITALS: BP 104/42
--- NOTE | 2019-05-02 17:05 | NUR ---
ASSUMED CARE OF PATIENT AT APPROX 0730. ALERT AND ORIENTED X4. ASSESSMENT COMPLETED AND CHARTED. VSS ON ROOM AIR. NO COMPLAINTS OF PAIN OR NAUSEA. ANTIBIOTICS INFUSED ORDERED. PATIENT UP WITH GAIT BELT AND WALKER TO THE BATHROOM, VOIDING WITHOUT ISSUE, HAVING SOME DIARRHEA THIS MORNING. NO OTHER COMPLAINTS THIS SHIFT. FALL PRECAUTIONS IN PLACE. CALL LIGHT WITHIN REACH. HOURLY ROUNDS COMPLETED. WILL CONTINUE WITH PLAN OF CARE.
[2019-05-02 20:25] VITALS: BP 105/63
[2019-05-03] VITALS: BP 120/42
[2019-05-03 03:08] LABS: HEMATOCRIT 28.8 % (37.0-47.0); HEMOGLOBIN 9.8 gm/dL (12.0-15.0); MCH 31.5 pg (26.0-34.0); MCV 92.6 fL (80.0-100.0); MPV 8.4 fl. (7.2-11.1); RBC 3.11 mil/uL (4.20-5.00); RDW-CV 14.2 % (10.5-14.5); WBC 10.4 thou/uL (4.0-11.0)
[2019-05-03 03:10] LABS: ALBUMIN 2.3 g/dL (3.4-5.0); CALCIUM 7.9 mg/dL (8.5-10.1); CREATININE 1.3 mg/dL (0.6-1.3); PHOSPHORUS* 2.7 mg/dL (2.5-4.9); POTASSIUM 3.3 mmol/L (3.5-5.1)
--- NOTE | 2019-05-03 05:10 | NUR ---
PATIENT HAS REMAINED ALERT AND ORIENTED X 4 THROUGHOUT THE SHIFT AND RESTING QUIETLY ON HOURLY ROUNDS. UP TO BR TO VOID. CGA WITH GAIT BELT AND WALKER. FALL PRECAUTIONS IN PLACE. POTASSIUM REPLACED OVERNIGHT. IV ANTIBIOTICS PER ORDER. LOOSE COUGH NOTED AT TIMES. VITAL SIGNS STABLE ON ROOM AIR. CONTINUE TO MONITOR.
--- NOTE | 2019-05-03 08:43 | NUR ---
CALLED AND FAXED REFERRALS TO [facility], [facility] AND [facility]. [facility] AND [facility] WOULD NOT TAKE INSURANCE ALTHOUGH INSURANCE COMPANY STATED THEY ARE IN NETWORK. AMRILU/SHIRLENE AT [facility] HAS BEEN WORKING ON AUTHORIZATION SINCE YESTERDAY, 05/02/19. THEY WILL MAKE A DETERMINATION BY 10:00 AM TODAY. DCP TO FOLLOW. [facility] H-[phone]; [phone]
[2019-05-03 09:52] VITALS: BP 104/60
[2019-05-03] MEDS ORDERED: LEVAQUIN 750 M750 MG PO (11:35)
[2019-05-03] MEDS ORDERED: TORSEMIDE10 MG PO (11:35)
[2019-05-03] MEDS ORDERED: SPIRONOLACTONE25 MG PO (11:40)
[2019-05-03] MEDS ORDERED: COZAAR 50 MG TA50 M1 PO (11:40)
[2019-05-03] MEDS ORDERED: ELIQUIS5 MG PO (11:41)
--- NOTE | 2019-05-03 13:15 | NUR ---
FAXED DISCHARGE ORDERS AND SUMMARY TO [facility]. CONFIRMED WITH MARILU/INTAKE TO SUBMIT FOR INSURANCE AUTHORIZATION. SHE WILL CONTACT US SOON SHE RECEIVES AUTHORIZATION. [facility] [phone]; [phone]
--- NOTE | 2019-05-03 14:42 | NUR ---
CM INFOMRMED PT THAT [facility] IS STILL AWAITING INSUR AUTH, PT AND NIECE, SHAHIDA, ARE READY TO D/C. CM INFORMED PT INSTRUCTIONS FOR HH ARE IN D/C PACKET. HOWEVER, PT WAS INFORMED D/T HER LEAVING PRIOR TO [facility] RECEIVING INSUR AUTH SHE MAY NEED TO F/U W/HH IF [facility] DOESNT CONTACT THEM TOMORROW TO SCHEDULE APPT. PT IN AGREEMENT W/PLAN. SHAHIDA STATED SHE WILL "GO BY THE HOUSE" AND HELP W/MEAL THROUGHOUT THE DAY AND PT'S SON LIVES W/PT SO HE WILL BE W/HER IN THE EVENINGS.
--- NOTE | 2019-05-03 18:09 | NUR ---
ASSUMED CARE OF PATIENT AT APPROX 0730. ALERT AND OREINTED X4. ASSESSMENT COMPLETED AND CHARTED. VSS ON ROOM AIR. NO COMPLAINTS OF PAIN THIS SHIFT. ANTIBIOTICS INFUSED ORDERED WITH EXCEPTION OF 1400 DOES OF [facility], PATIENTS FAMILY STATED THEY WANTED HER TO GO HOME [facility] AND PUSHED FOR IMMEDIATE DISCHARGE. DISCHARGE COMPLETED QUICKLY AND HOME HEALTH HEALTH SET UP. HEART FAILURE DISCHARGE SETUP BY CAMILLE CACERES. PATIENT DISCHARGE COMPLETED AND SIGNED AT APPROX 1545, PATIENT DID NOT LEAVE UNTIL 1730 WITH ALLPERSONAL BELONGINGS AND DISCHARGE INSTRUCTIONS.
[2019-05-04 10:08] VITALS: BP 104/60
--- NOTE | 2019-05-04 10:22 | NUR ---
PATIENT CALLED NEEDING [facility] MAIN NUMBER. [phone] [facility] CALLED PATIENT YESTERDAY, 04/04/19 AND LEFT THERE CELL NUMBER. CONFIRMED WITH MARILU AT [facility] THAT THEY CONTACTED PATIENT AND LIAISON LEFT HER CELL NUMBER. REASSURED PATIENT AND HER FRIEND SHAHIDA, WHO IS STAYING WITH PATIENT DURING THE DAY THAT [facility] WILL CONTACT THEM TODAY, 05/04/19.
== END 2019-05-03 17:30 | disposition home health service (06) | DRG 177 ==
LOC: M.ERS 23:25 → M.TBA-ER 04-27 02:03 → M.2W 04-27 02:03 → M.ORTHSURG 05-01 17:53
PROVIDERS: Emergency Medicine Emergency Medical Services; Family Medicine; ADMIT Internal Medicine
PROC: 0W9B3ZZ Drainage of Left Pleural Cavity, Percutaneous Approach (ICD-10-PCS; principal; 2019-04-27)
DX: J15.6 Pneumonia due to other Gram-negative bacteria (principal); I50.23 Acute on chronic systolic (congestive) heart failure; N39.0 Urinary tract infection, site not specified; E44.0 Moderate protein-calorie malnutrition; J91.8 Pleural effusion in other conditions classified elsewhere; I31.3 Pericardial effusion (noninflammatory); D50.9 Iron deficiency anemia, unspecified; I27.20 Pulmonary hypertension, unspecified; Y95 Nosocomial condition; I11.0 Hypertensive heart disease with heart failure; I25.5 Ischemic cardiomyopathy; K59.00 Constipation, unspecified; R19.7 Diarrhea, unspecified; I25.10 Atherosclerotic heart disease of native coronary artery without angina pectoris; E78.5 Hyperlipidemia, unspecified; I25.2 Old myocardial infarction; Z95.5 Presence of coronary angioplasty implant and graft; Z98.84 Bariatric surgery status; Z79.82 Long term (current) use of aspirin; Z79.899 Other long term (current) drug therapy; Z68.30 Body mass index [BMI] 30.0-30.9, adult; W18.30XA Fall on same level, unspecified, initial encounter; Y93.89 Activity, other specified; Y92.89 Other specified places as the place of occurrence of the external cause; Y99.8 Other external cause status

== ENCOUNTER 2019-12-10 04:36 | Observation (INO) | payer OTHER ==
[~2019-12-10] VITALS: Ht 152.4 cm; Wt 61.0 kg
[2019-12-10 04:36] VITALS: BP 134/69
[~2019-12-10 04:36] MED LIST changes: +COZAAR 50 MG TA50 M1 PO; +ELIQUIS5 MG PO; +LEVAQUIN 750 M750 MG PO; +SPIRONOLACTONE25 MG PO
[2019-12-10] MEDS ORDERED: CIPRO500 MG PO (05:00)
[2019-12-10 05:11] LABS: ABSOLUTE BASOPHILS 0.1 thou/uL (0.0-0.2); ABSOLUTE EOSINOPHILS 0.1 thou/uL (0.0-0.7); ABSOLUTE LYMPHOCYTES 1.4 thou/uL (0.8-5.3); ABSOLUTE MONOCYTES 0.5 thou/uL (0.0-1.2); ABSOLUTE NEUTROPHILS 3.7 thou/uL (1.6-8.1); BASOPHILS 1.2 %; EOSINOPHILS 2.1 %; HEMATOCRIT 32.1 % (37.0-47.0); HEMOGLOBIN 10.5 gm/dL (12.0-15.0); LYMPHOCYTES 23.8 %; MCH 29.4 pg (26.0-34.0); MCHC 32.8 g/dL (28.0-37.0); MCV 89.6 fL (80.0-100.0); MONOCYTES 8.9 %; MPV 10.4 fl. (7.2-11.1); NUCLEATED RBCS 0 /100WBC; PLATELET COUNT* 212 thou/uL (150-400); RBC 3.58 mil/uL (4.20-5.00); WBC 5.7 thou/uL (4.0-11.0)
[2019-12-10 05:26] LABS: CALCIUM 8.5 mg/dL (8.5-10.1); CREATININE 1.4 mg/dL (0.6-1.3); POTASSIUM 3.6 mmol/L (3.5-5.1)
[2019-12-10 05:29] LABS: APTT 29.9 Seconds (25.0-31.3); INR 1.2; PROTIME 12.7 Seconds (9.20-11.50)
[2019-12-10 05:37] LABS: ALBUMIN 3.6 g/dL (3.4-5.0); TOTAL BILIRUBIN 0.9 mg/dL (<0.1-1.0); TOTAL PROTEIN 7.1 g/dL (6.4-8.2)
[2019-12-10 08:26] LABS: URINE BILIRUBIN NEGATIVE (Negative); URINE BLOOD NEGATIVE (Negative); URINE CLARITY CLEAR; URINE COLOR YELLOW; URINE GLUCOSE-RANDOM NEGATIVE (Negative); URINE KETONES NEGATIVE (Negative); URINE LEUKOCYTES NEGATIVE (Negative); URINE NITRITE NEGATIVE (Negative); URINE PROTEIN NEGATIVE (Negative); URINE SPECIFIC GRAVITY 1.015 (1.005-1.030); URINE UROBILINOGEN 0.2 E.U./dl (0.2-1.0)
[2019-12-10 10:00] VITALS: BP 86/49
--- NOTE | 2019-12-10 10:04 | EKG ---
[place] [address] ELECTROCARDIOGRAM REPORT Name: DERRELL GREEN Room: [address] M.R.#: [id number] Admission: 12/10/19 Attend Phys: Bobby Martinez, Discharge: Date of : [birth year] Date of Service: 12/10/19 0441 Report #: [id number] THIS REPORT FOR: //name// [facility] ED Test Date: 2019-12-10 Test Time: 04:41:09 Pat Name: DERRELL GREEN Department: Room: [facility] Gender: F Vice President Sales: [place] : 1930 Requested By: Galina Gold Order Number: [id number] MD: Tim Yates Measurements Intervals [place] Rate: 75 P: 38 NM: 151 QRS: -31 QRSD: 112 T: 132 QT: 417 QTc: 466 Interpretive Statements Sinus rhythm Nonspecific T abnrm, anterolateral leads artifact noted Compared to ECG 04/26/2019 23:42:38 Possible ischemia no longer present Prolonged QT interval no longer present ST (T wave) deviation still present Electronically Signed On 12-10-2019 10:03:59 CDT by Tim Yates [email or web address] <ELECTRONICALLY SIGNED> By: Tim Yates MD, FACC 12/10/19 1003 0 0 Tim Yates MD, FACC /EPI
== END 2019-12-10 10:13 | disposition short-term general hospital (02) ==
LOC: M.ERS 04:36 → M.TBA-ER 07:11
PROVIDERS: Personal Emergency Response Attendant; ADMIT Internal Medicine; ATTEND Internal Medicine
DX: R07.89 Other chest pain (principal); I25.10 Atherosclerotic heart disease of native coronary artery without angina pectoris; I13.2 Hypertensive heart and chronic kidney disease with heart failure and with stage 5 chronic kidney disease, or end stage renal disease; I50.9 Heart failure, unspecified; N18.9 Chronic kidney disease, unspecified; I95.9 Hypotension, unspecified; I25.2 Old myocardial infarction; Z20.828 Contact with and (suspected) exposure to other viral communicable diseases; Z79.899 Other long term (current) drug therapy